=== PATIENT | female | born 2005 | race Hispanic/Latino ===

== ENCOUNTER 2023-07-17 20:49 | Emergency (ER) | payer SELFPAY ==
[2023-07-17] MEDS ORDERED: NA CHLORIDE 0.9% 1,000 ML ONE (21:56)
[2023-07-17 22:12] LABS: Absolute Lymphocytes (CBC) 1.5 K/uL (0.7-4.9); Hematocrit 40.5 % (36.0-45.0); Lymphocytes % 16.6 % (15.3-44.8); MCV 90.8 fL (80-100); MPV 7.1 fL (7.6-11.3); Platelets 257 thou/uL (152-406); RBC Red Blood Cell Count 4.46 M/uL (3.86-4.86)
[2023-07-17 22:19] LABS: Urine Bacteria None Seen /HPF (<20); Urine Bilirubin NEGATIVE (Negative); Urine Blood Negative (Negative); Urine Clarity Clear (Clear); Urine Color Colorless (Yellow); Urine Glucose NEGATIVE (Negative); Urine Mucus Slight /HPF (None Seen); Urine Protein NEGATIVE (Negative); Urine RBC <5 /HPF (None Seen); Urine Urobilinogen Normal (Normal); Urine pH 5.5 (5.0-7.0)
[2023-07-17 22:20] LABS: Barbiturates NEGATIVE (NEGATIVE); Benzodiazepines NEGATIVE (NEGATIVE); Cocaine NEGATIVE (NEGATIVE); METHAMPHETAM NEGATIVE (NEGATIVE); Methadone NEGATIVE (NEGATIVE); Opiates NEGATIVE (NEGATIVE); Phencyclidine NEGATIVE (NEGATIVE); Specific Gravity 1.017 (1.005-1.030); THC Cannibis NEGATIVE (NEGATIVE)
[2023-07-17 22:25] LABS: Protime INR 0.95
--- NOTE | 2023-07-17 22:33 | RAD REPORT ---
EXAM DESCRIPTION: CT - Head Brain Wo Cont - 07/17/2023 10:14 pm CLINICAL HISTORY: Confusion COMPARISON: none TECHNIQUE: Computed axial tomography of the head was obtained. IV contrast was not requested. All CT scans are performed using dose optimization technique as appropriate and may include automated exposure control or mA/KV adjustment according to patient size. FINDINGS: A few of the images are degraded by patient motion artifact An intracranial bleed is not seen The ventricles are normal in caliber No significant hypodense areas within the brain visualized No extra-axial fluid collection is noted. Moderate predominantly left maxillary and ethmoid sinusitis IMPRESSION: No acute intracranial abnormality is seen If patient's symptoms persist MRI of the brain would be recommended
[2023-07-17 22:43] LABS: ALT/SGPT 31 U/L (13-56); AST/SGOT 24 U/L (15-37); Albumin 3.8 g/dL (3.4-5.0); Alkaline Phosphatase 81 U/L (45-117); BUN Blood Urea Nitrogen 18 mg/dL (7-18); Bicarbonate 21 mEq/L (21-32); Bilirubin Total 0.2 mg/dL (0.2-1.0); Glomerular Filtration Rate 130 ml/min (=/>90); Glucose Level 113 mg/dL (74-106); Potassium 3.3 mEq/L (3.5-5.1); Protein, Total 8.1 g/dL (6.4-8.2); Sodium Level 140 mEq/L (136-145)
[2023-07-17 22:44] LABS: Bilirubin Direct < 0.1 mg/dL (0-0.2); Bilirubin Indirect, Calculated ND mg/dL (0.2-0.8)
[2023-07-17 22:48] LABS: SARS-COV-2 RT PCR NEGATIVE (NEGATIVE)
[2023-07-18] MEDS ORDERED: D5 0.9 NS 1,000 ML IV ONE (02:25)
--- NOTE | 2023-07-18 06:38 | ER ---
Nurse's Notes [facility] Name: Janette Araujo Age: 18 yrs Sex: Female : 2005 Arrival Date: 07/17/2023 Time: 20:49 Bed 8 Private MD: Diagnosis: Restlessness and agitation;Alcohol abuse with intoxication;Emotional upset, agitation requiring sedation, combative behavior, alcohol intoxication Presentation: 07/17 21:13 Chief complaint: EMS states: 911 CALLED FOR ANXIETY AND [place]B [place]. PT ALTERED AND bp COMBATIVE EN ROUTE, [employer] [employer] ESCORTED EMS 2/2 PT COMBATIVENESS AND AGITATION. Coronavirus screen: At this time, the client does not indicate any symptoms associated with coronavirus-19. Ebola Screen: No symptoms or risks identified at this time. Initial Sepsis Screen: Does the patient meet any 2 criteria? Altered Mental Status. No. Patient's initial sepsis screen is negative. Does the patient have a suspected source of infection? No. Patient's initial sepsis screen is negative. Risk Assessment: Do you want to hurt yourself or someone else? Patient reports no desire to harm self or others. Onset of symptoms is unknown. Care prior to arrival: Restraints applied. 21:13 Method Of Arrival: EMS: [facility] bp 21:13 Acuity: FANNIE 2 bp Triage Assessment: 21:17 General: Appears unkempt, Behavior is agitated, combative, Smells of alcohol. Pain: bp Unable to use pain scale. Does not appear to understand pain scale. EENT: No deficits noted. Neuro: Level of Consciousness is confused. Historical: - Allergies: 21:17 No Known Allergies; bp - Immunization history:: Adult Immunizations unknown. - Social history:: Smoking status: unknown. - Family history:: not pertinent. Screenin:38 [facility] ED Fall Risk Assessment (Adult) Confusion or Disorientation Yes (5 pts). Abuse bp screen: Denies threats or abuse. Denies injuries from another. Nutritional screening: No deficits noted. Tuberculosis screening: No symptoms or risk factors identified. 07/18 09:08 [facility] ED Fall Risk Assessment (Adult) History of falling in the last 3 months, db including since admission No falls in past 3 months (0 pts) Confusion or Disorientation No (0 pts) Intoxicated or Sedated No (0 pts) Impaired Gait No (0 pts) Mobility Assist Device Used No (0 pt) Altered Elimination No (0 pt) Score/Fall Risk Level 0 - 2 = Low Risk Oriented to surroundings, Maintained a safe environment. Assessment: 07/17 21:30 General: PT COMBATIVE, ATTEMPTING TO STRIKE STAFF AND SPITTING AT EMS AND STAFF. PT bp SCREAMING AND INCOHERENT, NOT RESPONDING TO VERBAL DIRECTION. RESTRAINTS PLACED FOR STAFF SAFETY. 21:32 Reassessment: eyes closed. Respiratory: Airway is patent Respiratory effort is even, ha1 unlabored, Respiratory pattern is regular, symmetrical. 22:30 Reassessment: eyes closed. Respiratory: Airway is patent Respiratory effort is even, ha1 unlabored, Respiratory pattern is regular, symmetrical. 23:30 Reassessment: eyes closed. Respiratory: Airway is patent Trachea midline Respiratory ha1 effort is even, unlabored, Respiratory pattern is regular, symmetrical. 07/18 00:30 Reassessment: eyes closed. Reassessment:. General: Appears comfortable. Respiratory: ha1 Airway is patent Respiratory effort is even, unlabored, Respiratory pattern is regular, symmetrical. 01:30 Reassessment: DISPO ON HOLD PENDING SOBRIETY. bp 03:30 Reassessment: eyes closed. Respiratory: Airway is patent Respiratory effort is even, ha1 unlabored, Respiratory pattern is regular, symmetrical. 04:30 Reassessment: Patient and/or family updated on plan of care and expected duration. Pain ha1 level reassessed. Patient is alert, oriented x 3, equal unlabored respirations, skin warm/dry/pink. Patient denies pain at this time. 05:30 Reassessment: Patient and/or family updated on plan of care and expected duration. Pain ha1 level reassessed. Patient is alert, oriented x 3, equal unlabored respirations, skin warm/dry/pink. Patient denies pain at this time. 06:40 Reassessment: Patient and/or family updated on plan of care and expected duration. Pain ha1 level reassessed. Patient is alert, oriented x 3, equal unlabored respirations, skin warm/dry/pink. awaiting for family member to pick her up. 07:10 Reassessment: Patient appears in no apparent distress at this time. Patient and/or db family updated on plan of care and expected duration. Pain level reassessed. PATIENT IS RESTING. PT IS DROWSY WHEN WOKEN UP. 07:39 Reassessment: CALLED PATIENT MOM TO NOTIFY PATIENT IS READY FOR DC. CALLED db [phone], MICHAEL (MOM). STATES SHE IS ON HER WAY AND COMING FROM [place]. 08:18 Reassessment: Patient and/or family updated on plan of care and expected duration. Pain db level reassessed. Patient is alert, oriented x 3, equal unlabored respirations, skin warm/dry/pink. PATIENT SAT UP AND BEGAN VOMITING. PATIENT REORIENTED TO SITUATION AND PLACE. 08:30 Reassessment: PATIENT REFUSED ZOFRAN. db 08:34 Reassessment: PATIENT PROVIDED PAPER SCRUBS. db 08:35 Reassessment: PATIENT AMBULATORY TO RESTROOM. db 08:38 Reassessment: Patient appears in no apparent distress at this time. Patient and/or db family updated on plan of care and expected duration. Pain level reassessed. Patient is alert, oriented x 3, equal unlabored respirations, skin warm/dry/pink. General: Appears in no apparent distress. comfortable, Behavior is calm, cooperative. Neuro: Level of Consciousness is awake, alert, obeys commands, Oriented to person, place, time, situation, Appropriate for age. Vital Signs: 07/17 21:13 Weight 68.04 kg; bp 21:31 BP 136 / 82; Pulse 82; Resp 15 S; Pulse Ox 99% on R/A; ha1 22:32 BP 124 / 82; Pulse 93; Resp 16; Pulse Ox 100% ; bp 23:30 BP 107 / 72; Pulse 89; Resp 17 S; Pulse Ox 100% on R/A; ha1 12 00:30 BP 102 / 66; Pulse 83; Resp 14; Pulse Ox 100% ; bp 01:30 BP 93 / 59; Pulse 78; Resp 15; Pulse Ox 100% ; bp 02:30 BP 100 / 60; Pulse 75; Resp 15; Pulse Ox 100% ; bp 03:30 BP 103 / 60; Pulse 75; Resp 18 S; Pulse Ox 100% on R/A; ha1 04:30 BP 101 / 63; Pulse 99; Resp 17 S; Pulse Ox 99% on R/A; ha1 05:30 BP 106 / 71; Pulse 94; Resp 18 S; Pulse Ox 100% on R/A; ha1 06:00 BP 97 / 62; Pulse 85; Resp 18 S; Pulse Ox 96% on R/A; ha1 07:00 BP 108 / 64; Pulse 95; Resp 16 S; Pulse Ox 97% on R/A; ha1 07:30 Pulse 96; Resp 16; Pulse Ox 97% on R/A; db 08:00 BP 115 / 74; Pulse 108; Resp 16; Pulse Ox 100% on R/A; db ED Course: 07/17 21:01 Patient arrived in ED. mb9 21:01 Diogenes Mckoy MD is Attending Physician. sp4 21:05 Glenn Gracia, RN is Primary Nurse. bp 21:17 Triage completed. bp 21:38 Patient has correct armband on for positive identification. Bed in low position. Call bp light in reach. Side rails up X2. Security at bedside. 21:40 Inserted saline lock: 20 gauge in right antecubital area, using aseptic technique. ha1 Blood collected. 21:50 Greer cath inserted, using sterile technique, 16 Fr., by va, balloon inflated, to ha1 gravity drainage, urine specimen collected. 22:04 Acetaminophen Sent. ha1 22:04 Basic Metabolic Panel Sent. ha1 22:04 CBC with Diff Sent. ha1 22:04 ETOH Level Sent. ha1 22:04 Hepatic Function Sent. ha1 22:04 PT-INR Sent. ha1 22:04 Test, Urine Sent. ha1 22:04 Ptt, Activated Sent. ha1 22:04 Salicylate Sent. ha1 22:04 Urinalysis w/ reflexes Sent. ha1 22:05 Urine Drug Screen Sent. ha1 22:05 COVID-19/FLU A+B Sent. ha1 22:15 CT Head Brain wo Cont In Process Unspecified. EDMS 07/18 08:35 returned clear yellow urine. Patient tolerated well. Greer cath removed intact, balloon db deflated. 09:08 Provided Education on: DISCHARGE. db 09:08 No provider procedures requiring assistance completed. IV discontinued, intact, db bleeding controlled, No redness/swelling at site. Restraints: 07/17 21:30 Violent/Self Destructive Restraint: Order: obtained. Initiated July 17, 2023 at bp 21:30 Staff present during the Initiation of Restraint: PRIMO RN, MAURA RN, GLENN RN. TAMIE JOY. Family Notification/Education: NO FAMILY PRESENT. Observed actions/behavior: destructive, violent, severely aggressive, harming self/others, confusion/disorientation, impaired decision making, Less restrictive alternatives attempted: decreased environmental stimuli, reoriented to location, medications evaluated, medicated for pain/anxiety, verbal de-escalation performed, Alternative interventions: Ineffective. Clinical justification for use: Violent/self destructing behavior impacts therapeutic environment. Poses a serious danger to physical safety of self \T\ others. Monitoring: Mental status: agitated/restless, confused. Cognition: poor judgement, poor safety awareness, unable to follow commands, Circulation: Within defined parameters (based on Cardiovascular assessment). Skin integrity: Within defined parameters (based on Integumentary assessment) No injuries due to Restraints noted. Range of Motion: Performed. Restraint status: Soft wrist restraint (Right) Started. Soft wrist restraint (Left) Started. Soft ankle restraint (Right) Started. Soft ankle restraint (Left) Started. Readiness for Discontinue: Criteria not met. Patient still violent/self destructive and Alternative interventions still ineffective. Restraint continued. Face to Face Evaluatn: Immediate Situation: DR MCKOY AT B/S ON ARRIVAL Response of Patient to Restraint: REMAINS COMBATIVE AND SPITTING Medical \T\ Behavioral condition: EXCITED DELIRIUM Continue Restraint. MD Notified of Evaluation result: Diogenes Mckoy MD. 21:45 Violent/Self Destructive Restraint: Observed actions/behavior: severely aggressive, bp confusion/disorientation, impaired decision making, Less restrictive alternatives attempted: decreased environmental stimuli, reoriented to location, medications evaluated, medicated for pain/anxiety, Alternative interventions: Ineffective. Clinical justification for use: Violent/self destructing behavior impacts therapeutic environment. Poses a serious danger to physical safety of self \T\ others. Monitoring: Restraint status: Soft wrist restraint (Right) Continued. Soft wrist restraint (Left) Continued. Soft ankle restraint (Right) Continued. Soft ankle restraint (Left) Continued. Readiness for Discontinue: Criteria not met. Patient still violent/self destructive and Alternative interventions still ineffective. Restraint continued. 22:00 Violent/Self Destructive Restraint: Observed actions/behavior: bp confusion/disorientation, impaired decision making, Less restrictive alternatives attempted: decreased environmental stimuli, reoriented to location, medications evaluated, medicated for pain/anxiety, Alternative interventions: Ineffective. Clinical justification for use: Violent/self destructing behavior impacts therapeutic environment. Poses a serious danger to physical safety of self \T\ others. Monitoring: Mental status: agitated/restless, confused. Cognition: poor judgement, poor safety awareness, unable to follow commands, Circulation: Within defined parameters (based on Cardiovascular assessment). Skin integrity: Within defined parameters (based on Integumentary assessment) No injuries due to Restraints noted. Restraint status: Soft wrist restraint (Right) Continued. Soft wrist restraint (Left) Continued. Soft ankle restraint (Right) Discontinued. Soft ankle restraint (Left) Discontinued. Readiness for Discontinue: Criteria not met. Patient still violent/self destructive and Alternative interventions still ineffective. Restraint continued. 22:15 Violent/Self Destructive Restraint: Observed actions/behavior: bp confusion/disorientation, impaired decision making, Less restrictive alternatives attempted: decreased environmental stimuli, reoriented to location, medications evaluated, medicated for pain/anxiety, Alternative interventions: Ineffective. Clinical justification for use: Violent/self destructing behavior impacts therapeutic environment. Poses a serious danger to physical safety of self \T\ others. Monitoring: Mental status: agitated/restless, confused. Cognition: poor judgement, poor safety awareness, unable to follow commands, Circulation: Within defined parameters (based on Cardiovascular assessment). Skin integrity: Within defined parameters (based on Integumentary assessment) No injuries due to Restraints noted. Restraint status: Soft wrist restraint (Right) Continued. Soft wrist restraint (Left) Continued. Readiness for Discontinue: Criteria not met. Patient still violent/self destructive and Alternative interventions still ineffective. Restraint continued. 22:30 Violent/Self Destructive Restraint: Observed actions/behavior: bp confusion/disorientation, impaired decision making, Less restrictive alternatives attempted: decreased environmental stimuli, reoriented to location, medications evaluated, medicated for pain/anxiety, Alternative interventions: Ineffective. Clinical justification for use: Violent/self destructing behavior impacts therapeutic environment. Poses a serious danger to physical safety of self \T\ others. Monitoring: Mental status: agitated/restless, confused. Cognition: poor judgement, poor safety awareness, unable to follow commands, Circulation: Within defined parameters (based on Cardiovascular assessment). Skin integrity: Within defined parameters (based on Integumentary assessment) No injuries due to Restraints noted. Restraint status: Soft wrist restraint (Right) Continued. Soft wrist restraint (Left) Continued. Readiness for Discontinue: Criteria not met. Patient still violent/self destructive and Alternative interventions still ineffective. Restraint continued. 22:45 Violent/Self Destructive Restraint: Observed actions/behavior: bp confusion/disorientation, impaired decision making, Less restrictive alternatives attempted: decreased environmental stimuli, reoriented to location, medications evaluated, medicated for pain/anxiety, verbal de-escalation performed, Alternative interventions: Effective. Monitoring: Mental status: subdued, Cognition: Unable to assess. Circulation: Within defined parameters (based on Cardiovascular assessment). Skin integrity: Within defined parameters (based on Integumentary assessment) No injuries due to Restraints noted. Restraint status: Soft wrist restraint (Right) Discontinued. Soft wrist restraint (Left) Discontinued. Readiness for Discontinue: Release criteria met. No longer exhibiting violent or self destructive behavior. Alt interventions effective. Restraint discontinuation: Discontinued at July 17, 2023 at 22:45 Effective alternative interventions: medicated for pain/anxiety. Administered Medications: 21:05 Drug: Geodon IM 40 mg IM once Route: IM; Site: right vastus lateralis; bp 22:00 Follow up: Response: No adverse reaction; RASS: Light sedation (-2) ha1 21:05 Drug: LORazepam IM 4 mg IM once Route: IM; Site: right vastus lateralis; bp 22:10 Follow up: Response: No adverse reaction; Anxiety decreased ha1 21:58 Drug: NS 0.9% IV 1000 ml IV at 1 bolus Per protocol; 1000 mL bolus Route: IV; Rate: 1 bp bolus; Site: right antecubital; 07/18 08:30 Follow up: Response: No adverse reaction; IV Status: Completed infusion; IV Intake: db 1000ml 07/17 23:00 Drug: D5-NS IV 1000 ml IV at 125 ml/hr continuous Route: IV; Rate: 125 ml/hr; Site: bp right antecubital; 07/18 09:14 Follow up: Response: No adverse reaction; IV Status: Completed infusion db 08:35 Not Given (Patient Refused): ondansetron 4 mg IVP once; over 2 minutes db Medication: 09:08 VIS not applicable for this client. db Intake: 08:30 IV: 1000ml; Total: 1000ml. db Outcome: 06:37 Discharge ordered by MD. mcallister 09:08 Discharged to home ambulatory, with family, db 09:08 Condition: stable 09:08 Discharge instructions given to patient, Instructed on discharge instructions, follow up and referral plans. 09:15 Patient left the ED. db Signatures: Dispatcher [employer] EDGlenn Ruiz RN Primo Rueda RN RN ha1 Elisha Diaz RN RN Johanna Schmidt RN RN mb9 Diogenes Mckoy MD MD sp4 Corrections: (The following items were deleted from the chart) 05:45 05:30 Reassessment: Patient and/or family updated on plan of care and expected ha1 duration. Pain level reassessed. Patient is alert, oriented x 3, equal unlabored respirations, skin warm/dry/pink. ha1
--- NOTE | 2023-07-18 06:38 | EDPHYS ---
Physician Documentation [facility] Name: Janette Araujo Age: 18 yrs Sex: Female : 2005 Arrival Date: 07/17/2023 Time: 20:49 Bed 8 Private MD: ED Physician Diogenes Mckoy HPI: 07/17 21:02 This 18 yrs old Female presents to ER via Unassigned with complaints of sp4 agitation . 22:35 This is 18-year-old female arrives with EMS for acute agitation and intoxication. sp4 [place] and patient reported to have had some alcohol. EMS and police were called to the scene where patient was found acutely agitated, screaming, hollering, spitting saliva. Patient was actually handcuffed to the EMS stretcher by the police department, patient was also tied to the stretcher with leg restraint, prevent harm to herself and others. On arrival patient is screaming and is also combative, she had to be given Ativan and Geodon on arrival for acute agitation. . Historical: - Allergies: 21:17 No Known Allergies; bp - Immunization history:: Adult Immunizations unknown. - Social history:: Smoking status: unknown. - Family history:: not pertinent. ROS: 22:35 Constitutional: ROS cannot be obtained secondary to acute agitation sp4 22:35 All other systems are negative, 22:35 Unable to obtain ROS due to patient being uncooperative, Exam: 22:34 ECG was reviewed by the Attending Physician. KG today at 2225 is normal sinus rhythm at sp4 a rate of 91 22:35 Constitutional: This is a well developed, well nourished patient who is awake, acutely sp4 agitated and combative on exam, spitting in every direction, screaming at the top of her lungs. Head/Face: Normocephalic, atraumatic. Eyes: Pupils equal round and reactive to light, extra-ocular motions intact. Lids and lashes normal. Conjunctiva and sclera are not injected. Cornea within normal limits. Periorbital areas with no swelling, redness, or edema. ENT: Nares patent. No nasal discharge, no septal abnormalities noted. Exam is difficult secondary to agitation acutely no abnormalities found Neck: Trachea midline, no thyromegaly or masses palpated, and no cervical lymphadenopathy. Supple, full range of motion without nuchal rigidity, or vertebral point tenderness. Chest/axilla: Normal chest wall appearance and motion. Nontender with no deformity. No lesions are appreciated. Cardiovascular: Tachycardia. no gallops, murmurs, or rubs. Normal PMI, no JVD. No pulse deficits. Respiratory: Lungs have equal breath sounds bilaterally, clear to auscultation and percussion. No rales, rhonchi or wheezes noted. No increased work of breathing, no retractions or nasal flaring. Abdomen/GI: Soft, non-tender, with normal bowel sounds. No distension or tympany. No guarding or rebound. No evidence of tenderness throughout. Back: No spinal tenderness. No costovertebral tenderness. Skin: Warm, dry with normal turgor. Normal color with no rashes, no lesions, and no evidence of cellulitis. MS/ Extremity: Pulses equal, no cyanosis. Neurovascular intact. Full, normal range of motion. Neuro: Awake and alert, GCS 15, oriented to person, place, time, and situation. Cranial nerves II-XII grossly intact. Motor strength 5/5 in all extremities. Sensory grossly intact. Psych: Awake, alert, with orientation to person, place and time. Behavior, mood, and affect are within normal limits Vital Signs: 21:13 Weight 68.04 kg; bp 21:31 BP 136 / 82; Pulse 82; Resp 15 S; Pulse Ox 99% on R/A; ha1 22:32 BP 124 / 82; Pulse 93; Resp 16; Pulse Ox 100% ; bp 23:30 BP 107 / 72; Pulse 89; Resp 17 S; Pulse Ox 100% on R/A; ha1 12/06 00:30 BP 102 / 66; Pulse 83; Resp 14; Pulse Ox 100% ; bp 01:30 BP 93 / 59; Pulse 78; Resp 15; Pulse Ox 100% ; bp 02:30 BP 100 / 60; Pulse 75; Resp 15; Pulse Ox 100% ; bp 03:30 BP 103 / 60; Pulse 75; Resp 18 S; Pulse Ox 100% on R/A; ha1 04:30 BP 101 / 63; Pulse 99; Resp 17 S; Pulse Ox 99% on R/A; ha1 05:30 BP 106 / 71; Pulse 94; Resp 18 S; Pulse Ox 100% on R/A; ha1 06:00 BP 97 / 62; Pulse 85; Resp 18 S; Pulse Ox 96% on R/A; ha1 07:00 BP 108 / 64; Pulse 95; Resp 16 S; Pulse Ox 97% on R/A; ha1 07:30 Pulse 96; Resp 16; Pulse Ox 97% on R/A; db 08:00 BP 115 / 74; Pulse 108; Resp 16; Pulse Ox 100% on R/A; db MDM: 07/17 21:04 Patient medically screened. sp4 07/18 01:03 ED course: CT report - EXAM DESCRIPTION: CT - Head Brain Wo Cont - 07/17/2023 10:14 pm sp4 CLINICAL HISTORY: Confusion COMPARISON: none TECHNIQUE: Computed axial tomography of the head was obtained. IV contrast was not requested. All CT scans are performed using dose optimization technique as appropriate and may include automated exposure control or mA/KV adjustment according to patient size. FINDINGS: A few of the images are degraded by patient motion artifact An intracranial bleed is not seen The ventricles are normal in caliber No significant hypodense areas within the brain visualized No extra-axial fluid collection is noted. Moderate predominantly left maxillary and ethmoid sinusitis IMPRESSION: No acute intracranial abnormality is seen If patient's symptoms persist MRI of the brain would be recommended. 06:38 Differential Diagnosis altered mental status, sepsis, flu. Data reviewed: vital signs, sp4 nurses notes, EMS record, lab test result(s), EKG, radiologic studies, CT scan. ED course: Patient has sobered up and is feeling improved. Patient is no longer agitated or upset. Patient was informed that is safe for her to go home. Patient was advised to abstain from alcohol consumption. . 07/17 21:03 Order name: Acetaminophen; Complete Time: 00:30 sp4 07/17 21:03 Order name: Basic Metabolic Panel; Complete Time: 00:30 sp4 07/17 21:03 Order name: CBC with Diff; Complete Time: 00:30 sp4 07/17 21:03 Order name: ETOH Level; Complete Time: 00:30 sp4 07/17 21:03 Order name: Hepatic Function; Complete Time: 00:30 sp4 07/17 21:03 Order name: PT-INR; Complete Time: 00:30 sp4 07/17 21:03 Order name: Test, Urine; Complete Time: 00:30 sp4 07/17 21:03 Order name: Ptt, Activated; Complete Time: 00:30 sp4 07/17 21:03 Order name: Salicylate; Complete Time: 00:30 sp4 07/17 21:03 Order name: Urinalysis w/ reflexes; Complete Time: 00:30 sp4 12 21:03 Order name: Urine Drug Screen; Complete Time: 00:30 4 07/17 21:04 Order name: COVID-19/FLU A+B; Complete Time: 00:30 sp4 07/17 21:03 Order name: CT Head Brain wo Cont; Complete Time: 00:30 sp4 07/17 21:03 Order name: EKG; Complete Time: 21:03 sp4 07/17 21:03 Order name: EKG - Nurse/Tech; Complete Time: 22:28 sp4 07/17 21:03 Order name: IV Saline Lock; Complete Time: 21:58 sp4 07/17 21:03 Order name: Labs collected and sent; Complete Time: 21:58 4 07/17 21:03 Order name: Suicide Screening ([place]); Complete Time: 21:06 sp4 07/17 21:03 Order name: [place]; Complete Time: 21:58 4 07/17 21:33 Order name: Restraint:Violent/Self Destructive (Adult:18yo or >); Complete Time: 21:58 bp EC/05 22:34 Rate is 91 beats/min. Rhythm is regular, Normal Sinus Rhythm. QRS [place] is Normal. CT sp4 interval is normal. QRS interval is normal. QT interval is normal. No Q waves. T waves are Normal. No ST changes noted. Clinical impression: Normal ECG. Interpreted by me. Administered Medications: 21:05 Drug: Geodon IM 40 mg IM once Route: IM; Site: right vastus lateralis; bp 22:00 Follow up: Response: No adverse reaction; RASS: Light sedation (-2) ha1 21:05 Drug: LORazepam IM 4 mg IM once Route: IM; Site: right vastus lateralis; bp 22:10 Follow up: Response: No adverse reaction; Anxiety decreased ha1 21:58 Drug: NS 0.9% IV 1000 ml IV at 1 bolus Per protocol; 1000 mL bolus Route: IV; Rate: 1 bp bolus; Site: right antecubital; 07/18 08:30 Follow up: Response: No adverse reaction; IV Status: Completed infusion; IV Intake: db 1000ml 07/17 23:00 Drug: D5-NS IV 1000 ml IV at 125 ml/hr continuous Route: IV; Rate: 125 ml/hr; Site: bp right antecubital; 07/18 09:14 Follow up: Response: No adverse reaction; IV Status: Completed infusion db 08:35 Not Given (Patient Refused): ondansetron 4 mg IVP once; over 2 minutes db Disposition Summary: 07/18/23 06:37 Discharge Ordered Notes: Location: Home sp4 Problem: new sp4 Symptoms: have improved sp4 Condition: Stable sp4 Diagnosis - Restlessness and agitation sp4 - Alcohol abuse with intoxication sp4 - Emotional upset, agitation requiring sedation, combative behavior, alcohol sp4 intoxication Followup: sp4 - With: Private Physician - When: As needed - Reason: Discharge Instructions: - Discharge Summary Sheet sp4 - Alcohol Intoxication sp4 Forms: - Patient Portal Instructions sp4 Signatures: Dispatcher [employer] EDRy Canales MD MD rn Peltier, Brian, RN RN bp Potepalov, Sergey, MD MD sp4 Khushboo Santos RN Elisha Muhammad RN db
[2023-07-18] MEDS ORDERED: ONDANSETRON 4 MG/2 ML VIAL ONE (08:34)
[2023-07-18 15:27] VITALS: BP 115/74; O2SAT 100
== END 2023-07-18 09:15 | disposition home or self-care (01) ==
LOC: ER 20:49
DX: R45.1 Restlessness and agitation (principal); F10.129 Alcohol abuse with intoxication, unspecified
CPT/HCPCS: 0240U; 36415; 51702; 70450; 80048; 80076; 80143; 80179; 80307; 81001; 81025; 82077; 85025; 85610; 85730; 93005; 96361; 96365; 96366; 96372; 99285; J2405; J7030; J7042